=== PATIENT | male | born 1990 | race Caucasian/White ===

== ENCOUNTER 2021-05-20 23:02 | Emergency (ER) | payer OTHER, SELFPAY ==
--- NOTE | ~2021-05-20 | XR_ITS ---
EXAMINATION: XR chest 2V EXAM DATE: 05/21/2021 01:49 INDICATION: Cough, shortness of breath, fever, nausea and vomiting. TECHNIQUE: Frontal and lateral projections of the chest obtained and reviewed. There is no prior danya dy for comparison. FINDINGS: The lungs are clear. There are no pleural effusions. The cardiomediastinal silhouette is within normal limits. There is no pneumothorax suspected. The bones and soft tissues are unremarkab le. IMPRESSION: No acute cardiopulmonary findings. Reviewed, dictated and finalized at location A.
[2021-05-20 23:12] VITALS: BP 114/63; PULSE 99; RESP 16; TEMP 37.2; O2SAT 96
[2021-05-21 00:03] LABS: Basophils Percent Auto 0.2 % (0.2-1.2); Hemoglobin 14.6 g/dL (14.0-18.0); Immature Granulocyte Absolute 0.01 K/mm3 (0.00-0.031); Immature Granulocyte Percent A 0.2 % (0-0.5); Lymphocytes Absolute Auto 0.62 K/mm3 (0.9-3.2); Lymphocytes Percent Auto 13.1 % (18.3-44.2); Mean Corpuscular HGB Conc 33.2 g/dl (32-36); Mean Corpuscular Hemoglobin 29.9 pg (26-34); Mean Corpuscular Volume 90.2 fl (80-100); Mean Platelet Volume 9.4 fl (7.4-10.4); Monocytes Absolute Auto 0.3 K/mm3 (0.1-0.6); Monocytes Percent Auto 6.6 % (2.6-8.5); Neutrophils Absolute Auto 3.8 K/mm3 (1.3-6.7); Neutrophils Percent Auto 79.9 % (45.5-73.1); Platelet Count Result 145 k/mm3 (150-375); Red Blood Count 4.88 M/mm3 (4.6-6.20); Red Cell Distribution Width 13.2 % (11.5-14.5); White Blood Count 4.7 K/mm3 (4.5-10.0)
[2021-05-21 00:17] LABS: Alanine Aminotransferase 100 U/L (4-50); Albumin Level 4.4 g/dL (3.5-5.1); Alkaline Phosphatase 52 U/L (38-126); Anion Gap 9 mmol/L (8-16); Aspartate Amino Transferase 77 U/L (17-59); Bilirubin,Total 0.4 mg/dL (0.2-1.3); Blood Urea Nitrogen 15 mg/dL (9-20); Calcium 8.6 mg/dL (8.4-10.2); Carbon Dioxide 24 mmol/L (22-30); Chloride 104 mmol/L (98-107); Estimated CRCL calculation 93 ml/min; Estimated Glomerular Filt Rate > 60; Glucose 120 mg/dL (65-110); Lipase 205 U/L (23-300); Potassium 4.2 mmol/L (3.4-5.0); Sodium 137 mmol/L (137-145)
[2021-05-21 01:30] VITALS: BP 110/72; PULSE 81; RESP 18; TEMP 37.2; O2SAT 96
--- NOTE | 2021-05-21 01:50 | PC.NURSE ---
Pt refused urine x2
--- NOTE | 2021-05-21 02:00 | ED.GENADULT ---
HPI - General Adult General Chief complaint: Nausea/Vomiting/Diarrhea Stated complaint: Fever, no smell or taste Time Seen by Provider: 05/21/21 01:34 Source: patient History of Present Illness HPI narrative: Patient is a 31 y/o male complaining moderate cough for 4 days. He states that he coughs up some phlegm at times. There is no alleviating or exacerbating factor. He had fever of 101 earlier. He has vomiting and diarrhea. He also lost sense of taste and smell. He is concerned about COVID. Related Data Allergies Allergy/AdvReac Type Severity Reaction Status Date / Time No Known Allergies Allergy Verified 05/21/21 01:35 Review of Systems Constitutional: Constitutional: Denies chills, Denies fever(s), Denies headache(s) and Denies weakness Eyes: Eyes: Denies blurry vision ENT: Denies headache(s) and Denies neck pain Cardiovascular: Cardiovascular: Denies chest pain and Reports dyspnea Respiratory: Respiratory: Reports cough and Reports dyspnea Gastrointestinal: Gastrointestinal: Denies abdominal pain, Denies diarrhea, Reports nausea and Reports vomiting Genitourinary: Genitourinary: Denies hematuria and Denies dysuria Musculoskeletal: Musculoskeletal: Denies back pain and Denies neck pain Neurologic: Denies headache(s) and Denies weakness [facility] Social History Social History Gender identity (if verbalized by the patient): Male Exam Const: General: no acute distress and well developed Orientation/consciousness: oriented to person, oriented to place, oriented to time and patient oriented x3 HENMT: Head: normocephalic Ears: external ears normal General nose exam: Normal external nose present Eyes: General: appearance normal, both eyes and all related structures Conjunctivae: conjunctivae normal Neck: Neck: normal visual inspection and full ROM Chest: Chest palpation & inspection: normal inspection of the chest and no tenderness Resp: Effort & Inspection: normal respiratory effort Auscultation: clear to auscultation bilaterally Cardio: Rate: regular rate Rhythm: regular rhythm GI: GI Palp: No abdominal tenderness and Yes Soft to palpation Skin: General skin exam: normal color and turgor normal Neuro: General: oriented to person, oriented to place, oriented to time and patient oriented x3 Cognition (Neuro): normal cognition Extrem: General: normal to inspection, full ROM and no pedal edema Psych: Appearance: grossly normal Mental Status: mental status grossly normal Affect: normal affect Course Vital Signs Vital signs: Vital Signs Temperature 37.2 C 05/20/21 23:12 Pulse Rate 99 05/20/21 23:12 Respiratory Rate 16 05/20/21 23:12 Blood Pressure 114/63 05/20/21 23:12 Pulse Oximetry 96 05/20/21 23:12 Temperature 37.2 C 05/21/21 01:30 Pulse Rate 81 05/21/21 01:30 Respiratory Rate 18 05/21/21 01:30 Blood Pressure 110/72 05/21/21 01:30 Pulse Oximetry 96 05/21/21 01:30 Medical Decision Making Vital Signs Vital Signs: Vital Signs Temperature 37.2 C 05/20/21 23:12 Pulse Rate 99 05/20/21 23:12 Respiratory Rate 16 05/20/21 23:12 Blood Pressure 114/63 05/20/21 23:12 Pulse Oximetry 96 05/20/21 23:12 Temperature 37.2 C 05/21/21 01:30 Pulse Rate 81 05/21/21 01:30 Respiratory Rate 18 05/21/21 01:30 Blood Pressure 110/72 05/21/21 01:30 Pulse Oximetry 96 05/21/21 01:30 Lab Data Result diagrams: 05/20/21 23:51 05/20/21 23:51 Labs: Lab Results 05/20/21 05/20/21 05/21/21 Range/Units 23:51 23:51 01:40 WBC 4.7 (4.5-10.0) K/mm3 RBC 4.88 (4.6-6.20) M/mm3 Hgb 14.6 (14.0-18.0) g/dL Hct 44.0 (42.0-52.0) % MCV 90.2 (80-100) fl MCH 29.9 (26-34) pg MCHC 33.2 (32-36) g/dl RDW 13.2 (11.5-14.5) % Plt Count 145 L (150-375) k/mm3 MPV 9.4 (7.4-10.4) fl Immature Gran % (Auto) 0.2 (0-0.5) % Ne
[2021-05-21 02:02] LABS: EDCOVIDSCREEN Positive (Negative)
== END 2021-05-21 02:11 | disposition home or self-care (01) ==
PROVIDERS: Emergency Medicine; Emergency Provider Emergency Medicine
DX: U07.1 COVID-19 (principal); R11.2 Nausea with vomiting, unspecified
CPT/HCPCS: 36415; 71046; 80053; 83690; 85025; 87426; 99283; C9803